=== PATIENT | female | born 1975 | race Caucasian/White ===

== ENCOUNTER 2016-03-06 23:18 | Inpatient (IN) | payer MEDICARE ==
[2016-03-06] MEDS ORDERED: NS 0.9% 1000 ML* 1,000 ML IV ONE (23:28)
[2016-03-06] MEDS ORDERED: Charcoal ACTIVATED* 25 GM/120 ML BTL PO ONE (23:28)
--- NOTE | 2016-03-06 23:46 | ED ---
Ronny Yepez Claudia, scribed for Jose Lock MD on 03/06/16 at 2331 . Substance Abuse/Use - HPI Summary HPI Summary: 40 year old female presents to the ED via EMS with substance abuse/use. Pt called EMS when he realized his was drinking too much. EMS states she has been drinking wine since 18:00. Once he called EMS pt took a handful of xanax. When asked how much wine she drank she states it was not enough. Pt denies taking any other prescription Rx. Level 5 caveat- Substance Use/Abuse - History Of Current Complaint Stated Complaint: OVERDOSE Time Seen by Provider: 03/06/16 23:21 Hx Obtained From: Patient, EMS Onset/Duration of Drug/ETOH Abuse: Minutes Ingestion History: Type/Name Of Drug - ETOH and xanax, Approximate Time Of Ingestion - 21:00 handful of xanax Overdose Characteristics: Oral Related Hx: Suicidal: Thoughts - Allergies/Home Medications Allergies/Adverse Reactions: Allergies Allergy/AdvReac Type Severity Reaction Status Date / Time No Known Allergies Allergy Verified 01/27/15 10:38 PMH/Surg Hx/FS Hx/Imm Hx Previously Healthy: Yes - PMHx is unknown due to Level 5 Caveat- Substance Use/ Abuse - Surgical History Surgery Procedure, Year, and Place: HYSTERECTOMY. BUNIONECTOMY BOTH FEET - Family History Family History: Unable to be obtained Level 5 caveat- substance use - Social History Lives: With Family Alcohol Use: Occasionally Substance Use Type: Reports: None Smoking Status (MU): Never Smoked Tobacco Review of Systems - ROS Summary Review of Systems Summary: Level 5 caveat- Substance Use/Abuse Negative: Fever Neurological: Other - substance use/abuse All Other Systems Reviewed And Are Negative: No Physical Exam Triage Information Reviewed: Yes Vital Signs On Initial Exam: Initial Vitals Temp Pulse Resp BP Pulse Ox 97.4 F 89 16 124/98 100 03/06/16 23:31 03/06/16 23:31 03/06/16 23:31 03/06/16 23:31 03/06/16 23:31 Vital Signs Reviewed: Yes Appearance: Positive: No Pain Distress Skin: Positive: Warm Head/Face: Positive: Normal Head/Face Inspection Eyes: Positive: J CARLOS ENT: Positive: Hearing grossly normal Neck: Positive: Supple Respiratory/Lung Sounds: Positive: Clear to Auscultation, Breath Sounds Present Cardiovascular: Positive: Normal Abdomen Description: Positive: Nontender, Soft Bowel Sounds: Positive: Present Musculoskeletal: Positive: Strength/ROM Intact Neurological: Positive: Sensory/Motor Intact Diagnostics - Vital Signs Vital Signs Temp Pulse Resp BP Pulse Ox 03/06/16 23:31 97.4 F 89 16 124/98 100 - Laboratory Result Diagrams: 03/06/16 23:50 03/07/16 01:11 Lab Statement: Any lab studies that have been ordered have been reviewed, and results considered in the medical decision making process. - EKG 00:36 Cardiac Rate: NL EKG Rhythm: Sinus Rhythm - NSR:93 beats/min Re-Evaluation - Re-Evaluation First Eval Re-Evaluation Time: 05:31 - seen and cleared by barbra Change: Improved Course/Dx - Course Assessment/Plan: Pt presents to the ED with substance abuse. Poison Control is consulted. Pt will recieve a MHE. - Diagnoses Provider Diagnoses: Polysubstance abuse - Physician Notifications Patient Is Medically Stable For: Psych Evaluation - 7:00am 03/07/15 Discharge - Discharge Plan Condition: Improved Disposition: HOME Referrals: Non Staff,Doctor [Primary Care Provider] - The documentation as recorded by the Ronny day Claudia accurately reflects the service I personally performed and the decisions made by me, Jose Lock MD.
[2016-03-07 00:17] LABS: ALT 11 U/L (7-52); Albumin 3.9 g/dL (3.2-5.2); Alkaline Phosphatase 62 U/L (34-104); BUN/Creatinine Ratio 15.4 (8-20); Blood Urea Nitrogen 10 mg/dL (6-24); CO2 Carbon Dioxide 26 mmol/L (22-32); Calcium 8.4 mg/dL (8.6-10.3); Chloride 107 mmol/L (101-111); EGFR African American 130.5 (>60); EGFR Non-African American 101.5 (>60); Globulin 2.8 g/dL (2-4); Glucose 94 mg/dL (70-100); Sodium 138 mmol/L (133-145); Total Protein 6.7 g/dL (6.4-8.9)
[2016-03-07] MEDS ORDERED: Charcoal ACTIVATED* 25 GM/120 ML BTL ONE (00:20)
[2016-03-07 00:22] LABS: Hematocrit 40 % (35-47); Hemoglobin 13.6 g/dl (12.0-16.0); Mean Corpuscular HGB Conc 34 g/dl (31-36); Mean Corpuscular Hemoglobin 30 pg (27-31); Mean Corpuscular Volume 89 fL (80-97); Mean Platelet Volume 7 um3 (7.4-10.4); Red Blood Count 4.52 10^6/ul (4.0-5.4); Red Cell Distribution Width 13 % (10.5-15); White Blood Count 7.8 10^3/ul (3.5-10.8)
[2016-03-07 00:54] LABS: Acetaminophen < 15 mcg/mL; Alcohol 54 mg/dL (<10); Salicylate < 2.50 mg/dL (<30)
[2016-03-07] MEDS ORDERED: Potassium Chloride LIQUID* 20 MEQ PACKET PO ONE (02:06)
--- NOTE | 2016-03-07 19:42 | ED ---
IChristo Adam, scribed for Dewayne Boyce MD on 03/07/16 at 1829 . Progress - Progress Note Progress Note: Pt to be admitted for depression and overdose. Signed involuntary admission paperwork. Condition is stable. Course/Dx - Diagnoses Provider Diagnoses: Depressed, Substance abuse The documentation as recorded by the scribeChristo Adam accurately reflects the service I personally performed and the decisions made by , Dewayne Boyce MD.
[2016-03-07] MEDS ORDERED: LORazepam IM* PER WAM PARAMETERS IM SCH (21:00)
[2016-03-07] MEDS ORDERED: Al Hydrox/Mg Hydrox/Simet LIQ* 30 ML Q2P GAST DISTRESS PO PRN (21:00)
[2016-03-08] MEDS: Folic Acid TAB* 1 MG DAILY PO SCH (10:39)
[2016-03-08] MEDS: Multivitamins ADULT TAB DAILY PO SCH (10:39)
[2016-03-08] MEDS: Gabapentin CAP(*) 300 MG PO SCH ×4 (10:39→20:29)
[2016-03-08] MEDS: Thiamine TAB* 100 MG TAB DAILY (@ T+1) PO SCH (10:39)
[2016-03-08] MEDS: Vitamin THERAPEUTIC TAB PO SCH (10:42)
[2016-03-08 11:02] LABS: Urine Bacteria Absent (Absent); Urine Bilirubin Negative (Negative); Urine Glucose Negative (Negative); Urine Nitrite Negative (Negative)
[2016-03-08 11:34] LABS: Benzodiazepine Urine Screen Presumptive Positive (None Detect)
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
[2016-03-09 08:27] LABS: Albumin 4.2 g/dL (3.2-5.2); BUN/Creatinine Ratio 14.3 (8-20); EGFR African American 119.8 (>60); EGFR Non-African American 93.2 (>60); Globulin 2.9 g/dL (2-4); Potassium 3.9 mmol/L (3.5-5.0); Total Bilirubin 0.5 mg/dL (0.2-1.0); Total Protein 7.1 g/dL (6.4-8.9)
[2016-03-09 09:03] LABS: TSH (Thyroid Stimulating Horm) 4.08 mcIU/mL (0.34-5.60)
[2016-03-09] MEDS: Multivitamins ADULT TAB DAILY PO SCH (09:03)
[2016-03-09] MEDS: Folic Acid TAB* 1 MG DAILY PO SCH (09:03)
[2016-03-09] MEDS: Vitamin THERAPEUTIC TAB PO SCH (09:03)
[2016-03-09] MEDS: Gabapentin CAP(*) 300 MG PO SCH ×3 (09:04→20:44)
[2016-03-09] MEDS: Thiamine TAB* 100 MG TAB DAILY (@ T+1) PO SCH (09:04)
[2016-03-09] MEDS: Acetaminophen TAB* 325 MG PO PRN ×2 (14:09→20:45)
[2016-03-09] MEDS: LORazepam TAB(*) WAM SCALE 0-6 MG PO SCH ×2 (16:49→23:26)
[2016-03-10] MEDS: Gabapentin CAP(*) 300 MG PO SCH ×2 (08:34→14:49)
[2016-03-10] MEDS: Folic Acid TAB* 1 MG DAILY PO SCH (08:34)
[2016-03-10] MEDS: Multivitamins ADULT TAB DAILY PO SCH (08:36)
[2016-03-10] MEDS: Thiamine TAB* 100 MG TAB DAILY (@ T+1) PO SCH (08:36)
[2016-03-10] MEDS: Vitamin THERAPEUTIC TAB PO SCH (08:36)
[2016-03-10] MEDS: Acetaminophen TAB* 325 MG PO PRN ×2 (10:30→21:15)
--- NOTE | 2016-03-10 12:00 | PN ---
[facility]: Group Therapy Note - Service Type Service Type: 82372 Group Psychotherapy - Cognitive Behavioral Group Therapy ( CBT):Patient was attentive and participatory in CBT programming this morning, and remained in good behavioral control. Patient expressed positive insights regarding relevant treatment interventions and goals.
--- NOTE | 2016-03-10 16:20 | PN ---
Subjective - Subjective Service Type: 44282 Hosp care 35 min high complexity Subjective: Patient endorses a history of episodic mood variations including both depressive states and periods of overtalkativeness, distractability, irritability and indiscrete behavior. She doesn't want to take anything sedating or appetite stimulating. Patient c/o headache from fall and has a contusion on her left frontal mormon. Objective - Appearance Appearance: Well Developed/Nourished Dysmorphic Features: No Hygiene: Normal Grooming: Well Kept - Behavior Psychomotor Activities: Normal Exhibits Abnormal Movement: No - Attitude and Relatedness Attitude and Relatedness: Cooperative Eye Contact: Good - Speech Quality: Pressured Latencies: Normal Quantity: Copious - Mood Patient's Decription of Mood: "Upset" - Affect Observed Affect: Tense Affect Consistent with: Dysphoria - Thought Process Patient's Thought Process: Circumstantial Thought Content: No Passive Wish, No Suicidal Planning, No Homicidal Ideation, No Paranoid Ideation - Sensorium Experiencing Hallucinations: No, Sensorium is Clear Type of Hallucinations: Visual: No, Auditory: No, Command: No - Level of Consciousness Level of Consciousness: Alert Orientation: Yes Intact, Yes Orientated to Time, Yes Orientated to Place, Yes Orientated to Person - Impulse Control Impulse Control: Tenuous - Insight and Judgement Insight and Judgement: Fair - Group Participation Particating in Group Activities: Yes - Medication Management Medication Management Adherence: Yes Assessment - Assessment Merits Inpatient Hospitalization: Diagnosis Determination, For Ongoing Evaluation Inpatient DSM-IV Dx: Bipolar DO type II Clinical Impression: 40 y.o. , white female with a history of substance abuse and mood instability arrives with recent overutilization of tramadol, alcohol and alprazolam, as well as vague SI. Plan - Plan Treatment Plan: Name: ANTIONETTE TALBERT Birthdate: 1975 [id number] Will d/c gabapentin and start a trial of lamotrigine 50mg PO qday and Wellbutrin XL 150mg PO qam. Will refer to inpatient substance abuse rehab. Continued Medication Management: Different Medication Medications: Current Medications Acetaminophen (Tylenol Tab*) 650 mg PO Q4H PRN PRN Reason: PAIN or TEMP > 101 F Last Admin: 03/10/16 10:30 Dose: 650 mg Al Hydrox/Mg Hydrox/Simethicone (Maalox Plus*) 30 ml PO Q2H PRN PRN Reason: PRN GASTRIC DISTRESS Folic Acid (Folvite Tab*) 1 mg PO DAILY [facility] Last Admin: 03/10/16 08:34 Dose: 1 mg Lorazepam (Ativan Inj*) 0 - 6 mg IM .PER WAM [facility]AM[facility]ERS CHERYL PRN Reason: Protocol Lorazepam (Ativan Tab(*)) 0 - 6 mg PO .PER WAM [facility]AMETERS CHERYL PRN Reason: Protocol Last Admin: 03/09/16 23:26 Dose: 2 mg Multivitamins (Theragran Tab*) 1 tab PO DAILY [facility] Last Admin: 03/10/16 08:36 Dose: 1 tab Thiamine HCl (Vitamin B-1 Tab*) 100 mg PO DAILY [facility] Last Admin: 03/10/16 08:36 Dose: 100 mg - Discharge Plan Discharge Plan: Drug/Alcohol Rehab
[2016-03-10] MEDS: lamoTRIgine TAB(*) 25 MG PO SCH ×2 (18:01→21:22)
[2016-03-10] MEDS ORDERED: Ibuprofen TAB* 400 MG PO PRN (18:50)
--- NOTE | 2016-03-10 18:56 | RAD ---
Indication: Fall, head injury. CT of the brain was performed without IV contrast. Ventricular structures are midline. No midline shift is noted. The extraction spaces are unremarkable. There is no evidence of intracranial mass or hemorrhage. No other high or low density lesions are identified. Mastoid air cells and paranasal sinuses are otherwise unremarkable. IMPRESSION: No intracranial mass or hemorrhage is noted.
[2016-03-11] MEDS: BuPROPion XL* 150 MG TAB.XL PO SCH ×3 (05:48→10:44)
[2016-03-11] MEDS ORDERED: BuPROPion XL* 150 MG TAB.XL PO ONE (05:48)
[2016-03-11] MEDS: Thiamine TAB* 100 MG TAB DAILY (@ T+1) PO SCH (08:38)
[2016-03-11] MEDS: Folic Acid TAB* 1 MG DAILY PO SCH (08:39)
[2016-03-11] MEDS: lamoTRIgine TAB(*) 25 MG PO SCH (08:39)
[2016-03-11] MEDS: Vitamin THERAPEUTIC TAB PO SCH (10:48)
[2016-03-11] MEDS ORDERED: LORazepam TAB(*) 1 MG PO PRN (13:09)
--- NOTE | 2016-03-11 13:16 | PN ---
Subjective - Subjective Service Type: 06594 Hosp care 25 min moderate complexity Subjective: The patient has several questions today, which she has written down to try to organize her thoughts, however, she presents them one after the other without allowing me time to adequately respond. She interrupts me multiple times and seems confused about some things, appearing distractable, anxious and overtalkative. She is not sleeping well and continues to have headache complaints. Objective - Appearance Appearance: Healthy Appearing Dysmorphic Features: No Hygiene: Normal Grooming: Well Kept - Behavior Psychomotor Activities: Normal Exhibits Abnormal Movement: No - Attitude and Relatedness Attitude and Relatedness: Cooperative Eye Contact: Good - Speech Quality: Pressured Latencies: Short Quantity: Copious - Mood Patient's Decription of Mood: "Anxious" - Affect Observed Affect: Expansive Affect Consistent with: Dysphoria - Thought Process Patient's Thought Process: Tangential Thought Content: Yes Paranoid Ideation, No Passive Wish, No Suicidal Planning, No Homicidal Ideation - Sensorium Experiencing Hallucinations: No, Sensorium is Clear Type of Hallucinations: Visual: No, Auditory: No, Command: No - Level of Consciousness Orientation: Yes Intact, Yes Orientated to Time, Yes Orientated to Place, Yes Orientated to Person - Impulse Control Impulse Control: Tenuous - Insight and Judgement Insight and Judgement: Fair - Group Participation Particating in Group Activities: Yes - Medication Management Medication Management Adherence: Yes Assessment - Assessment Merits Inpatient Hospitalization: For Ongoing Evaluation, Consolidate Improvements Inpatient DSM-IV Dx: Bipolar DO type II Clinical Impression: 40 y.o. , white female with a history of substance abuse and mood instability arrives with recent overutilization of tramadol, alcohol and alprazolam, as well as vague SI. Plan - Plan Treatment Plan: Name: ANTIONETTE TALBERT Birthdate: 1975 [id number] We have started a trial of lamotrigine 50mg PO qday and Wellbutrin XL 150mg PO qam. Start lorazepam 2mg PO qhs as prn tonight for insomnia. She needs a family meeting with us and her and we will refer to substance abuse rehab. Continued Medication Management: Start Medication Medications: Current Medications Acetaminophen (Tylenol Tab*) 650 mg PO Q4H PRN PRN Reason: PAIN or TEMP > 101 F Last Admin: 03/10/16 21:15 Dose: 650 mg Al Hydrox/Mg Hydrox/Simethicone (Maalox Plus*) 30 ml PO Q2H PRN PRN Reason: PRN GASTRIC DISTRESS Bupropion HCl (Wellbutrin Xl *) 150 mg PO QAM CHERYL PRN Reason: Protocol Last Admin: 03/11/16 10:44 Dose: Not Given Ibuprofen (Motrin Tab*) 400 mg PO Q4H PRN PRN Reason: HEADACHE Lamotrigine (Lamictal Tab(*)) 50 mg PO DAILY [facility] Last Admin: 03/11/16 08:39 Dose: 50 mg Lorazepam (Ativan Tab(*)) 2 mg PO BEDTIME PRN PRN Reason: INSOMNIA Multivitamins (Theragran Tab*) 1 tab PO DAILY [facility] Last Admin: 03/11/16 10:48 Dose: 1 tab - Discharge Plan Discharge Plan: Inpatient Hospitalization
--- NOTE | 2016-03-11 13:48 | PN ---
[facility]: Group Therapy Note - Service Type Service Type: [id number] Group Psychotherapy - Cognitive Behavioral Group Therapy ( CBT):Patient was attentive and participatory in CBT programming this morning, and remained in good behavioral control. Patient expressed positive insights regarding relevant treatment interventions and goals.
[2016-03-12] MEDS: Acetaminophen TAB* 325 MG PO PRN (04:53)
[2016-03-12 07:42] VITALS: BP 127/87
[2016-03-12] MEDS: BuPROPion XL* 150 MG TAB.XL PO SCH (08:04)
[2016-03-12] MEDS: Vitamin THERAPEUTIC TAB PO SCH (08:05)
[2016-03-12] MEDS: lamoTRIgine TAB(*) 25 MG PO SCH (08:05)
--- NOTE | 2016-03-12 11:52 | PN ---
[facility]: Group Therapy Note - Service Type Service Type: [id number] Group Psychotherapy - Cognitive Behavioral Group Therapy ( CBT):Patient was attentive and participatory in CBT programming this morning, and remained in good behavioral control. Patient expressed positive insights regarding relevant treatment interventions and goals.
--- NOTE | 2016-03-13 01:03 | DS ---
DISCHARGE SUMMARY: DATE OF ADMISSION: 03/07/16 DATE OF DISCHARGE: 03/12/16 DISCHARGE DIAGNOSES: AXIS I: Bipolar disorder, type 2. Opioid use disorder. AXIS II: Deferred. AXIS III: History of anemia. AXIS IV: Moderate primary support stressors. AXIS V: At the time of admission was 30 and at the time of discharge is 60. CONDITION AT THE TIME OF DISCHARGE: Stable. The patient is calm and cooperative. 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 She is tolerating her medications quite well and she is denying suicidal or homicidal ideations. She is agreeable with followup treatment in the community, both for substance abuse as well as her mental health needs. The patient's has visited her on the day of discharge for family meeting and is agreeable with the discharge plan. DISCHARGE INSTRUCTIONS: To the patient are as follows: A: Medications: 1. Wellbutrin XL 150 mg p.o. q.a.m. 2. Lamotrigine 50 mg p.o. daily. B: Diet is regular. C: Activities as tolerated. The patient is a nonsmoker. D: Followup care: The patient will follow up tomorrow at 9 a.m. at [facility]. There she will be getting not only psychiatric and psychotherapeutic treatment but she will also be referred to their drug and alcohol treatment program, which she will be pursuing on an outpatient basis. MENTAL STATUS EXAM: At the time of discharge, the patient is a middle-aged white female who was attractive with long red hair and somewhat pale skin. She is well dressed with good grooming. Speech has normal rate, tone and volume. Mood is euthymic with a full affect. Thought process is linear and goal directed. Thought content is significant for her desire to return home with her family. She is denying suicidal or homicidal ideations. She denies audio or visual hallucinations. Insight and judgment are fair, given her willingness to follow up with treatment on an ongoing outpatient basis. Cognitively, she is awake and alert with what appears to be an average intellect. HOSPITAL COURSE: As follows: Part A: Reason for admission: The patient is a 40-year-old white female with a history of bipolar disorder who was brought in by ambulance after an episode in which she was abusing alcohol and taking too much prescribed Xanax at the same time. Although the patient denies that this was a formal suicidal attempt, she did make vague passive suicidal statements in the emergency room to the effect that she no longer wanted to be living this way. My understanding is that she admitted recently to her that she has been abusing tramadol, which is a painkiller, for the past 10 years. She stated that her New Year's resolution was to wean herself off tramadol. She noted that she started experiencing pain and withdrawal symptoms, which she tried to ameliorate by drinking large amounts of wine and also taking alprazolam. Her indicates that she started walking around her house in a drunken fashion and at one point, she actually fell on her head. At that time she was rushed to the emergency room, where she made some statements to the effect that she could not go on this way. Upon initial evaluation by this observer, she appeared to be no longer in acute withdrawal from tramadol. However, she was continuing to displace symptoms of distractibility in discrete behavior, grandiosity, flight of ideas, increased goal directed activities, poor sleep and over talkativeness, all of which were indicative of hypomania. The history of her illness was that she had been diagnosed with bipolar and had seen an outpatient psychiatrist named Dr. Marcus in the [place] [employer] area but that he was retiring and she was distraught about this. The patient steadfastly denied suicidal or homicidal ideations at the time of her intake. Part B: Psychiatric treatment rendered: The patient was admitted to the adult behavioral health unit where she was placed on every 30 minutes checks for her own safety. She was placed on the WA protocol and did on at least 2 occasions receive oral Ativan for what was felt to be symptoms of drug withdrawal. However, it was uncertain whether this withdrawal phenomenon was from the tramadol or from the alprazolam. The history emerged that she had been also abusing Adderall at one point, although this was prescribed by Dr. Marcus. We did get her to agree to a trial of lamotrigine augmented by Wellbutrin XL. Her Lamictal was at the dose of 50 mg daily whereas the Wellbutrin was at 150 mg daily. She tolerated these well and we were able to invite her in for family meeting. He indicates that he has been aware of her bipolarity for several years but that she was always secretive not only about this but about her abuse of tramadol. They seem to relate well together and they felt that there could be no further secrets between them when it came to her mental health. The patient was agreeable to referral to outpatient mental health as well as substance abuse followup. She is tolerating her medications quite well and continues to deny any thoughts of hurting herself. Under these circumstances , we do feel that she is safe to be discharged. She and her family are in agreement with this. [id number]/CPS #: [id number] MTDD
== END 2016-03-12 12:15 | disposition home or self-care (01) | DRG 885 ==
LOC: ED 23:18 → BSU 03-07 21:15
PROVIDERS: ADMIT Psychiatry & Neurology Psychiatry; ATTEND Psychiatry & Neurology Psychiatry
PROC: GZHZZZZ Group Psychotherapy (ICD-10-PCS; principal; 2016-03-07)
DX: F31.81 Bipolar II disorder (principal); F14.94 Cocaine use, unspecified with cocaine-induced mood disorder; F11.90 Opioid use, unspecified, uncomplicated; Z81.1 Family history of alcohol abuse and dependence; F15.90 Other stimulant use, unspecified, uncomplicated; F41.9 Anxiety disorder, unspecified
CPT/HCPCS: 36415; 70450; 80053; 80307; 80320; 80329; 81003; 81015; 83605; 84443; 85025; 87086; 90853; 93005; 99222; 99232; 99233; 99238; A9270-GY; G0480